=== PATIENT | female | born 1995 | race Hispanic/Latino ===

== ENCOUNTER 2022-04-04 10:26 | Day surgery (SDC) | payer OTHER, SELFPAY ==
[2022-04-04] MEDS ORDERED: hydrALAZINE 20 MG/ML VIAL SLOW IVP PRN (11:28)
[2022-04-04 12:01] VITALS: BMI 48.8
== END 2022-04-04 12:58 | disposition home health service (06) ==
LOC: CSHLD/OP 10:26
PROVIDERS: ATTEND Student in an Organized Health Care Education/Training Program
DX: O36.8330 Maternal care for abnormalities of the fetal heart rate or rhythm, third trimester, not applicable or unspecified (principal); O99.213 Obesity complicating pregnancy, third trimester; E66.01 Morbid (severe) obesity due to excess calories; O24.415 Gestational diabetes mellitus in pregnancy, controlled by oral hypoglycemic drugs; Z3A.29 29 weeks gestation of pregnancy; Z87.891 Personal history of nicotine dependence; Z79.82 Long term (current) use of aspirin

== ENCOUNTER 2022-05-30 10:14 | Day surgery (SDC) | payer OTHER ==
[2022-05-30 10:51] VITALS: BMI 50.5
[2022-05-30] MEDS ORDERED: hydrALAZINE 20 MG/ML VIAL SLOW IVP PRN (11:10)
[2022-05-30 12:13] LABS: Fetal Membranes Rupture RUPTURE DETECTED (No Rupture)
[2022-05-30] MEDS ORDERED: Ondansetron ODT 4 MG TAB SL PRN (12:32)
== END 2022-05-30 14:32 | disposition home health service (06) ==
LOC: CSHLD/OP 10:14
PROVIDERS: ATTEND Student in an Organized Health Care Education/Training Program
DX: O99.891 Other specified diseases and conditions complicating pregnancy (principal); N89.8 Other specified noninflammatory disorders of vagina; O47.1 False labor at or after 37 completed weeks of gestation; O24.415 Gestational diabetes mellitus in pregnancy, controlled by oral hypoglycemic drugs; O99.213 Obesity complicating pregnancy, third trimester; Z3A.37 37 weeks gestation of pregnancy; Z79.82 Long term (current) use of aspirin
CPT/HCPCS: 76815; 84112; 99285; Q0162

== ENCOUNTER 2022-06-03 08:26 | Inpatient (IN) | payer OTHER ==
[~2022-06-03 08:26] MED LIST: Bupivacaine/Epinephrine 0.25% 30 ML VIAL ONE; ePHEDrine Sulfate 50 MG/10 ML VIAL ONE
[2022-06-03] MEDS ORDERED: hydrALAZINE 20 MG/ML VIAL SLOW IVP PRN (10:20)
[2022-06-03] MEDS ORDERED: Misoprostol 200 MCG TAB PR PRN (10:46)
[2022-06-03] MEDS ORDERED: Diphenoxylate HCl/Atropine Tablet PO PRN (10:46)
[2022-06-03] MEDS ORDERED: Lidocaine 1% (PF) 30 ML VIAL SC PRN (10:46)
[2022-06-03] MEDS ORDERED: Ondansetron PF 4 MG/2 ML Vial IVP PRN ×2 (10:46→21:27)
[2022-06-03] MEDS ORDERED: Carboprost 250 MCG/ML AMP IM PRN (10:46)
[2022-06-03] MEDS ORDERED: Methylergonovine 0.2 MG/ML VIAL IM PRN (10:46)
[2022-06-03] MEDS ORDERED: Lactated Ringer's 1,000 ML IV SCH (11:00)
[2022-06-03] MEDS ORDERED: NS w/ Oxytocin 30 units 500 ML IV SCH ×3 (11:00→21:27)
[2022-06-03 13:01] LABS: Hemoglobin 11.1 g/dL (12.0-15.5); Mean Corpuscular Hemoglobin 30.2 pg (27.0-33.0); Mean Corpuscular Volume 91.3 fl (81.6-98.3); Mean Platelet Volume 10.4 fl (7.4-10.4); Platelet Count 317 10x3/uL (150-450); RBC Distribution Width 13.7 % (11.5-14.5); Red Blood Cell (RBC) Count 3.68 10x6/uL (3.90-5.03); White Blood Cell (WBC) Count 7.5 10x3/uL (3.5-10.5)
[2022-06-03 13:26] LABS: Hep B Surf Ag Non-Reactive S/CO (NonReactive)
[2022-06-03 13:33] LABS: HBSAg Index 0.19 S/CO (0-0.99)
[2022-06-03 13:50] LABS: Syphilis Antibody Nonreactive (Nonreactive); Syphilis Antibody Index 0.02 S/CO (<1.00 Non-Reactive)
[2022-06-03 14:01] LABS: SARS-CoV-2 NAA Rapid Test Not Detected (NotDetected)
[2022-06-03] MEDS ORDERED: Fentanyl 2 mcg/Bup 0.1% Cadd 100 ML ONE (14:51)
[2022-06-03] MEDS ORDERED: Milk Of Magnesia 30 ML UDCUP PO PRN (21:27)
[2022-06-03] MEDS ORDERED: Bisacodyl 10 MG SUPP PR PRN (21:27)
[2022-06-03] MEDS ORDERED: Preparation H Ointment 28 GM TUBE PR PRN (21:27)
[2022-06-03] MEDS ORDERED: diphenhydrAMINE 25 MG CAP PO PRN (21:27)
[2022-06-03] MEDS ORDERED: Boostrix 0.5 ML (Tdap) VIAL IM ONE (21:27)
[2022-06-03] MEDS ORDERED: Docusate 100 MG CAP PO SCH (21:30)
[2022-06-03] MEDS: Ibuprofen 800 MG TAB PO SCH (21:45)
[2022-06-04] MEDS: Ibuprofen 800 MG TAB PO SCH ×3 (05:19→21:21)
[2022-06-04] MEDS: Ferrous Sulfate 325 MG TAB PO SCH ×2 (07:17→17:20)
[2022-06-04] MEDS: Docusate 100 MG CAP PO SCH ×2 (09:06→21:21)
[2022-06-04] MEDS ORDERED: Benzocaine-Menthol 82.5 ML CAN TOP PRN (10:13)
[2022-06-04] MEDS ORDERED: Acetaminophen 500 MG TAB PO PRN (10:13)
[2022-06-05] MEDS: Ibuprofen 800 MG TAB PO SCH (05:29)
[2022-06-05 08:16] VITALS: BP 108/55; TEMP 98.1
[2022-06-05] MEDS: Ferrous Sulfate 325 MG TAB PO SCH (08:41)
[2022-06-05] MEDS: Docusate 100 MG CAP PO SCH (09:38)
== END 2022-06-05 11:20 | disposition home or self-care (01) | DRG 807 ==
LOC: CSHLD/OP 08:26 → CSHLD 10:52 → CSHPP 23:10
PROVIDERS: ADMIT Student in an Organized Health Care Education/Training Program; ATTEND Student in an Organized Health Care Education/Training Program
PROC: 10E0XZZ Delivery of Products of Conception, External Approach (ICD-10-PCS; principal; 2022-06-03)
PROC: 3E033VJ Introduction of Other Hormone into Peripheral Vein, Percutaneous Approach (ICD-10-PCS; 2022-06-03)
PROC: 0HQ9XZZ Repair Perineum Skin, External Approach (ICD-10-PCS; 2022-06-03)
DX: O24.425 Gestational diabetes mellitus in childbirth, controlled by oral hypoglycemic drugs (principal); Z37.0 Single live birth; Z79.84 Long term (current) use of oral hypoglycemic drugs; Z3A.37 37 weeks gestation of pregnancy; O99.214 Obesity complicating childbirth; Z90.89 Acquired absence of other organs; Z79.82 Long term (current) use of aspirin; O70.0 First degree perineal laceration during delivery; O76 Abnormality in fetal heart rate and rhythm complicating labor and delivery; O42.02 Full-term premature rupture of membranes, onset of labor within 24 hours of rupture; E66.01 Morbid (severe) obesity due to excess calories; R03.0 Elevated blood-pressure reading, without diagnosis of hypertension; O75.89 Other specified complications of labor and delivery; Z20.822 Contact with and (suspected) exposure to COVID-19
CPT/HCPCS: 36415; 36416; 85027; 86780; 86850; 86900; 86901; 87340; J2590; U0002